=== PATIENT | female | born 1950 | race Caucasian/White ===

== ENCOUNTER 2016-12-20 | Inpatient (IN) | payer OTHER ==
[2016-12-20] MEDS ORDERED: CENTRUM SILVER1 EAC6 PO (16:47)
[2016-12-20] MEDS ORDERED: CALCIUM 600 +1 EA10 PO (16:47)
[2016-12-20] MEDS ORDERED: LIPITOR40 M1 PO (16:49)
[2016-12-20] MEDS ORDERED: B-12500 MC1 PO (16:49)
[2016-12-20] MEDS ORDERED: PAXIL20 M1 PO (16:49)
[2016-12-20] MEDS ORDERED: ASPIRIN EC325 M1 PO (16:49)
[2016-12-20] MEDS ORDERED: IBUPROFEN200 M2 PO (16:50)
[2016-12-24] MEDS ORDERED: STOP THE FOLLOWING (12:18)
[2016-12-24] MEDS ORDERED: NORCO 5-325 TA1 EACH PO (12:20)
[2016-12-24] MEDS ORDERED: TYLENOL325 M2 PO (12:22)
[2016-12-28] MEDS ORDERED: CALCIUM CARBONATE CH (14:28)
[2016-12-28] MEDS ORDERED: K-TAB ER20 ME1 PO (14:29)
[2016-12-28] MEDS ORDERED: VITAMIN D31000 UNI3 PO (14:40)
== END 2016-12-24 12:56 | DRG 628 ==
DX: E83.52 Hypercalcemia (principal); G93.40 Encephalopathy, unspecified; N17.9 Acute kidney failure, unspecified; C90.00 Multiple myeloma not having achieved remission; E87.1 Hypo-osmolality and hyponatremia; E86.0 Dehydration; E88.09 Other disorders of plasma-protein metabolism, not elsewhere classified; D64.9 Anemia, unspecified; F32.9 Major depressive disorder, single episode, unspecified; E78.5 Hyperlipidemia, unspecified; Z86.73 Personal history of transient ischemic attack (TIA), and cerebral infarction without residual deficits; M54.9 Dorsalgia, unspecified; F12.90 Cannabis use, unspecified, uncomplicated; Z88.0 Allergy status to penicillin; Z88.8 Allergy status to other drugs, medicaments and biological substances; E87.6 Hypokalemia; K59.00 Constipation, unspecified

== ENCOUNTER 2017-01-05 11:27 | Inpatient (IN) | payer OTHER ==
[~2017-01-05 11:27] MED LIST: ASPIRIN EC325 M1 PO; B-12500 MC1 PO; CALCIUM 600 +1 EA10 PO; CALCIUM CARBONATE CH; CENTRUM SILVER1 EAC6 PO; IBUPROFEN200 M2 PO; K-TAB ER20 ME1 PO; LIPITOR40 M1 PO; NORCO 5-325 TA1 EACH PO; PAXIL20 M1 PO; STOP THE FOLLOWING; TYLENOL325 M2 PO; VITAMIN D31000 UNI3 PO
[2017-01-05] MEDS ORDERED: PERCOCET 10-321 EACH PO (11:54)
[2017-01-05] MEDS ORDERED: ZOVIRAX400 M1 PO (11:55)
[2017-01-05] MEDS ORDERED: DIFLUCAN100 M1 PO (11:57)
[2017-01-05] MEDS ORDERED: DEXAMETHASONE4 M1 PO (11:58)
[2017-01-05] MEDS ORDERED: AMBIEN5 M1 PO (11:59)
[2017-01-05] MEDS ORDERED: ZOFRAN8 M1 PO (11:59)
[2017-01-05] MEDS ORDERED: REVLIMID25 M1 PO (14:05)
[2017-01-05] MEDS ORDERED: BACTRIM DS TAB1 EAC2 PO (14:06)
[2017-01-05] MEDS ORDERED: VELCADE3.5 MG/VIA SC (14:11)
[2017-01-05] MEDS ORDERED: ZOMETA4 MG/5 M1 IV (14:15)
[2017-01-07 04:57] LABS: ANION GAP 9 mmol/L (0-20); BLOOD UREA NITROGEN 36 mg/dl (6-24); CALCIUM 7.1 mg/dl (8.5-10.5); CARBON DIOXIDE-VENOUS 26 mmol/L (22-32); CHLORIDE 110 mmol/l (96-110); CREATININE 1.02 mg/dl (0.50-1.10); GLUCOSE 104 mg/dL (70-110); POTASSIUM 4.6 mmol/L (3.7-5.1); SODIUM 140 mmol/L (135-145); eGFR VALUE FOR BLACK 67 mL/Min
[2017-01-07 05:10] LABS: BASO % 0.1 % (0-2); EOS % 0.5 % (0-7); EOSINOPHIL ABSOLUTE COUNT 0.1 tho/cmm (0.0-0.7); HGB-HEMOGLOBIN 7.8 gm/dl (12.0-15.5); IMMATURE GRANULOCYTES ABSOLUTE 0.07 tho/cmm (0-0.03); IMMATURE GRANULOCYTES PERCENT 0.7 % (0-0.3); LYMPH ABSOLUTE COUNT 0.9 tho/cmm (0.8-4.5); MCH (MEAN CORPUSCULAR HGB) 30.5 pg (28.0-32.0); MCHC MEAN CORPUSCULAR HGB CONC 32.5 % (32.0-36.0); MCV (MEAN CELL VOLUME) 93.8 fl (82.0-96.0); MONO % 4.5 % (0-12); MONOCYTE ABSOLUTE COUNT 0.5 tho/cmm (0.0-1.2); NEUTROPHIL ABSOLUTE COUNT 9.2 tho/cmm (1.6-8.0); NEUTROPHIL-AUTOMATED 9.2 tho/cmm (1.6-8.0); NEUTROPHILS % 86.2 % (40-80); PLATELET COUNT 427 tho/cmm (150-450); RED BLOOD COUNT 2.56 mil/cmm (4.00-5.20); RED CELL DISTRIBUTION WIDTH 15.7 % (12.4-16.4); WHITE BLOOD COUNT 10.7 tho/cmm (4.0-10.0)
[2017-01-08 18:18] LABS: URINE BILIRUBIN NEGATIVE (NEG); URINE BLOOD MODERATE (NEG); URINE GLUCOSE (UA) SMALL (NEG); URINE KETONE NEGATIVE (NEG); URINE LEUKOCYTE ESTERASE NEGATIVE (NEG); URINE NITRITE NEGATIVE (NEG); URINE PROTEIN SMALL (NEG); URINE SPECIFIC GRAVITY 1.015 (1.003-1.030)
[2017-01-08 18:21] LABS: URINE APPEARANCE CLEAR; URINE COLOR YELLOW
[2017-01-08 18:25] LABS: URINE EPITHELIAL CELLS 0-2 /[HPF] (0-10); URINE RBC 0 /[HPF] (0-5); URINE WBC 0-2 /[HPF] (0-5)
[2017-01-10 06:27] LABS: EOS % 4.6 % (0-7); EOSINOPHIL ABSOLUTE COUNT 0.2 tho/cmm (0.0-0.7); HCT-HEMATOCRIT 26.4 % (34.0-49.0); HGB-HEMOGLOBIN 8.7 gm/dl (12.0-15.5); IMMATURE GRANULOCYTES ABSOLUTE 0.02 tho/cmm (0-0.03); IMMATURE GRANULOCYTES PERCENT 0.5 % (0-0.3); LYMPH % 20.7 % (20-45); LYMPH ABSOLUTE COUNT 0.8 tho/cmm (0.8-4.5); MCH (MEAN CORPUSCULAR HGB) 30.7 pg (28.0-32.0); MCV (MEAN CELL VOLUME) 93.3 fl (82.0-96.0); MEAN PLATELET VOLUME 9.3 cmc (9.4-12.4); MONO % 14.9 % (0-12); MONOCYTE ABSOLUTE COUNT 0.6 tho/cmm (0.0-1.2); NEUTROPHIL ABSOLUTE COUNT 2.2 tho/cmm (1.6-8.0); NEUTROPHIL-AUTOMATED 2.2 tho/cmm (1.6-8.0); NEUTROPHILS % 59.3 % (40-80); PLATELET COUNT 323 tho/cmm (150-450); RED BLOOD COUNT 2.83 mil/cmm (4.00-5.20); RED CELL DISTRIBUTION WIDTH 15.5 % (12.4-16.4); WHITE BLOOD COUNT 3.7 tho/cmm (4.0-10.0)
[2017-01-10 06:41] LABS: ALB/GLOB RATIO 0.2 (0.8-2.0); ALBUMIN 1.5 g/dl (3.5-5.0); ALKALINE PHOSPHATASE 292 U/L (33-138); ALT/SGPT 128 U/L (12-78); ANION GAP 10 mmol/L (0-20); AST/SGOT 22 U/L (10-40); BILIRUBIN,TOTAL 0.2 mg/dl (0-1.5); BLOOD UREA NITROGEN 21 mg/dl (6-24); CALCIUM 6.9 mg/dl (8.5-10.5); CARBON DIOXIDE-VENOUS 29 mmol/L (22-32); CHLORIDE 104 mmol/l (96-110); GLUCOSE 84 mg/dL (70-110); POTASSIUM 4.3 mmol/L (3.7-5.1); SODIUM 139 mmol/L (135-145); eGFR VALUE FOR BLACK >90 mL/Min
[2017-01-10] MEDS ORDERED: OXYCONTIN20 M2 PO (09:18)
[2017-01-10] MEDS ORDERED: COMPAZINE10 MG PO (09:19)
[2017-01-10] MEDS ORDERED: SENOKOT-S TABL1 EACH PO (09:24)
[2017-01-10] MEDS ORDERED: MILK OF MAGNESIA PO (09:24)
[2017-01-10] MEDS ORDERED: COLACE100 M1 PO (09:24)
== END 2017-01-10 13:35 | DRG 841 ==
LOC: 5WF 11:27
PROVIDERS: Internal Medicine Hematology & Oncology; ADMIT Internal Medicine Hematology & Oncology
PROC: 3E01305 Introduction of Other Antineoplastic into Subcutaneous Tissue, Percutaneous Approach (ICD-10-PCS; principal; 2017-01-06)
PROC: DP0C0ZZ Beam Radiation of Other Bone using Photons <1 MeV (ICD-10-PCS; principal; 2017-01-06)
DX: C90.00 Multiple myeloma not having achieved remission (principal); C79.51 Secondary malignant neoplasm of bone; D63.0 Anemia in neoplastic disease; G89.3 Neoplasm related pain (acute) (chronic); K59.00 Constipation, unspecified; F41.9 Anxiety disorder, unspecified; N39.498 Other specified urinary incontinence
CPT/HCPCS: A9577; J1100; J2270; J2405; J9041